=== PATIENT | male | born 1985 | race Caucasian/White ===

== ENCOUNTER 2024-01-20 11:56 | Outpatient (AMB) | payer BC, SELFPAY ==
--- NOTE | 2024-01-20 12:26 | MHC.OFFWIV ---
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 He states a piece of tyrese metal came into contact with his leg and it was bleeding with the bleeding is now controlled. 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 He denies any pain and has no trouble walking on it. PFSH Social History Patient Tobacco Use Status: Never used Tobacco Review of Systems Const All systems reviewed & are unremarkable except as noted in HPI and below Physical Exam Vital Signs: Last Vital Signs Temp 98.4 F 01/20/24 12:33 Pulse 84 01/20/24 12:33 BP 122/76 01/20/24 12:33 Pulse Ox 96 01/20/24 12:33 Const General: cooperative, healthy appearing, comfortable, no acute distress and well developed Orientation/consciousness: patient oriented x3 Limitations: no limitations Eyes General: appearance normal, both eyes and all related structures Resp Effort & Inspection: normal respiratory effort and able to speak in complete sentences Skin Other: left lower extremity, 1cm superficial laceration/flap, missing flap, open area, not bleeding. Neuro General: patient oriented x3 Assessment & Plan Assessment & Plan (1) Leg wound, left: Code(s): S81.802A - Unspecified open wound, left lower leg, initial encounter Qualifiers: Encounter type: initial encounter Qualified Code(s): S81.802A - Unspecified open wound, left lower leg, initial encounter Plan: Nothing to suture together nor Steri-Strips, cleaned with iodine and applied gauze with tape. Gave patient a Tdap and instructed him to use Aquaphor twice daily once the wound starts healing Plan see above Orders: Orders TDaP Immunization Today S61.512A - Laceration without foreign body of left wrist, initial encounter Medications: New Boostrix Tdap (diphth,pertus(acell),tetanus) 0.5 mL IM ONCE 0.5 mL 0RF cut by metal NS S61.512A - Laceration without foreign body of left wrist, initial encounter Coding Level of Care Code New Pt Level 3 (38522) Diagnoses Wound of left lower extremity, initial encounter S81.802A Encounter type: initial encounter
[2024-01-20 12:33] VITALS: BP 122/76; PULSE 84; TEMP 36.9; O2SAT 96
== END 2024-01-20 13:26 | disposition home or self-care (01) ==
PROVIDERS: Visit Provider Physician Assistant
DX: S61.512A Laceration without foreign body of left wrist, initial encounter (principal); S81.802A Unspecified open wound, left lower leg, initial encounter
CPT/HCPCS: 90471; 90715; 99203